=== PATIENT | female | born 1965 | race Caucasian/White ===

== ENCOUNTER 2019-07-12 15:32 | Emergency (ER) | payer BC ==
[~2019-07-12] VITALS: Ht 165.1 cm; Wt 69.0 kg
[~2019-07-12 15:32] MED LIST: AMBEREN PO; CALCIUM PO; ESTRATEST H.S.1 EACH PO; FLAGYL500 MG PO; LORTAB 5 MG/5001 TA1 PO; PHENERGAN 25 MG25 M1 PO; SYNTHROID137 MCG PO; VITCB500GO PO
[2019-07-12 16:35] LABS: ABSOLUTE EOSINOPHILS 0.1 thou/uL (0.0-0.7); ABSOLUTE LYMPHOCYTES 1.9 thou/uL (0.8-5.3); ABSOLUTE MONOCYTES 0.5 thou/uL (0.0-1.2); ABSOLUTE NEUTROPHILS 3.7 thou/uL (1.6-8.1); BASOPHILS 0.4 %; EOSINOPHILS 1.6 %; HEMATOCRIT 42.1 % (37.0-47.0); HEMOGLOBIN 14.6 gm/dL (12.0-15.0); LYMPHOCYTES 30.3 %; MCH 34.6 pg (26.0-34.0); MCHC 34.8 g/dL (28.0-37.0); MCV 99.5 fL (80.0-100.0); MONOCYTES 7.7 %; MPV 10.4 fl. (7.2-11.1); NUCLEATED RBCS 0 /100WBC; PLATELET COUNT* 196 thou/uL (150-400); RBC 4.23 mil/uL (4.20-5.00); RDW-CV 13.6 % (10.5-14.5); WBC 6.2 thou/uL (4.0-11.0)
[2019-07-12 16:42] LABS: CALCIUM 8.4 mg/dL (8.5-10.1); CREATININE 1.1 mg/dL (0.6-1.3); POTASSIUM 3.8 mmol/L (3.5-5.1)
[2019-07-12 16:44] LABS: APTT 27.8 Seconds (25.0-31.3); PROTIME 10.2 Seconds (9.20-11.50)
[2019-07-12 16:56] LABS: ALBUMIN 3.8 g/dL (3.4-5.0); CK-MB MASS 0.8 ng/mL (<0.5-3.6); MAGNESIUM 2.2 mg/dL (1.8-2.4); TOTAL BILIRUBIN 0.4 mg/dL (<0.1-1.0); TOTAL PROTEIN 6.6 g/dL (6.4-8.2)
[2019-07-12 18:14] VITALS: BP 143/89
--- NOTE | 2019-07-13 10:29 | EKG ---
[place] [address] ELECTROCARDIOGRAM REPORT Name: MAGALY RINCON Room: [facility] ([place], [place])#: [id number] Admission: 07/12/19 Attend Phys: Discharge: 07/12/19 Date of : 61 Report #: [id number] THIS REPORT FOR: //name// [facility] ED Test Date: 2019-07-12 Test Time: 16:40:46 Pat Name: MAGALY RINCON Department: Room: Gender: F [employer] Apprentice: LIZBET : 1965 Requested By: Manuel Simmons Order Number: [id number] MD: Chico Botello Measurements Intervals [place] Rate: 64 P: 82 MO: 157 QRS: 59 QRSD: 91 T: 35 QT: 422 QTc: 436 Interpretive Statements Sinus rhythm Borderline T wave abnormalities Compared to ECG 09/29/2006 20:37:12 T-wave abnormality now present Electronically Signed On 07-13-2019 10:29:33 [employer] by Chico Botello [email or web address] <ELECTRONICALLY SIGNED> By: Chico Botello MD, [facility] 07/13/19 1029 [facility] 1640 Chico Botello MD, FACC /EPI
== END 2019-07-12 18:19 | disposition home or self-care (01) ==
LOC: M.ERS 15:32
PROVIDERS: Family Medicine
DX: G43.909 Migraine, unspecified, not intractable, without status migrainosus (principal); R07.89 Other chest pain; I10 Essential (primary) hypertension; F41.9 Anxiety disorder, unspecified; F17.200 Nicotine dependence, unspecified, uncomplicated; Z90.710 Acquired absence of both cervix and uterus; Z90.89 Acquired absence of other organs; Z88.5 Allergy status to narcotic agent